=== PATIENT | male | born 1970 | race Caucasian/White ===

== ENCOUNTER 2020-11-11 20:46 | Emergency (ER) | payer BC ==
[~2020-11-11] VITALS: Ht 170.2 cm; Wt 82.6 kg
[2020-11-11 21:28] VITALS: BP 160/99
[2020-11-11 23:40] VITALS: BP 160/99
== END 2020-11-11 21:00 | disposition left against medical advice (07) ==
LOC: MED 20:46
DX: H57.10 Ocular pain, unspecified eye (principal); Z53.21 Procedure and treatment not carried out due to patient leaving prior to being seen by health care provider

== ENCOUNTER 2022-12-15 08:05 | Emergency (ER) | payer BC ==
[~2022-12-15] VITALS: Ht 170.2 cm; Wt 81.6 kg
[2022-12-15 08:08] VITALS: BP 140/105; PULSE 87; RESP 20; TEMP 98; O2SAT 98
--- NOTE | 2022-12-15 08:39 | NUR ---
MD BLACK AT BEDSIDE FOR EVALUATION
[2022-12-15 08:50] VITALS: O2SAT 98
[2022-12-15] MEDS ORDERED: KETOROLAC 30 MG/ML VIAL IVP ONE (08:50)
[2022-12-15] MEDS ORDERED: NACL 0.9% 1,000 ML IV ONE ×2 (08:50→10:05)
--- NOTE | 2022-12-15 08:50 | NUR ---
52YO MALE PT C/O EPIGATRIC PAIN X5DAYS. REPORTS SUDDEN ONSET +NAUSEA W/ RADIATION TO BACK. STATES RECENTLY DX PANCREATITIS. DENIES V/D, FEVER, CHILLS, DYSURIA OR TAKING MEDICATION. ABD NON TENDER OR DISTENDED. PT AAOX4, HOB POSITIONED PER COMFORT. PARTNER AT BEDSIDE. CALL LIGHT WITHIN REACH. HX: HTN NKA
[2022-12-15 08:52] LABS: APPEARANCE,URINE CLEAR (CLEAR); BILIRUBIN,URINE 2+ (NEGATIVE); BLOOD, URINE 2+ (NEGATIVE); LEUKOCYTE ESTERASE ,URINE TRACE (NEGATIVE); NITRITE, URINE NEGATIVE (NEGATIVE); UGLUCOSE NEGATIVE (NEGATIVE)
[2022-12-15 08:57] LABS: COLOR,URINE DARK YELLOW (YELLOW)
[2022-12-15 09:12] LABS: BASOPHILS % (AUTO) 0.7 % (0.0-2.0); EOSINOPHILS # (AUTO) 0.3 K/uL (0-0.4); EOSINOPHILS % (AUTO) 4.6 % (0.0-4.0); HEMATOCRIT 42.8 % (36-52); HEMOGLOBIN 14.8 g/dL (12.0-18.0); LYMPHOCYTES # (AUTO) 1.5 K/uL (2.0-11.5); LYMPHOCYTES % (AUTO) 23.8 % (20.5-51.1); MEAN CORPUSCULAR HEMOGLOBIN 33 pg (27-31); MEAN CORPUSCULAR HGB CONC 35 g/dL (33-37); MEAN CORPUSCULAR VOLUME 94.6 fL (80-94); MONOCYTES # (AUTO) 0.6 K/uL (0.8-1.0); MONOCYTES % (AUTO) 9.3 % (1.7-9.3); NEUTROPHILS # (AUTO) 3.8 K/uL (1.8-7.7); NEUTROPHILS % (AUTO) 61.6 % (42.2-75.2); PLATELET COUNT (AUTO) 201 K/uL (140-450); RED BLOOD CELL COUNT(AUTO) 4.52 MIL/uL (4.20-6.10); RED CELL DISTRIBUTION WIDTH 12.5 % (11.6-13.7); WHITE BLOOD COUNT (AUTO) 6.2 K/uL (4.8-10.8)
[2022-12-15 09:24] LABS: ALBUMIN 3.7 g/dL (3.4-5.0); ANION GAP 12.4 (8-16); CARBON DIOXIDE 28.5 mmol/L (21-32); CREATININE 0.8 mg/dL (0.6-1.3); POTASSIUM 3.9 mmol/L (3.5-5.1); TOTAL BILIRUBIN 1.8 mg/dL (0.0-1.0)
[2022-12-15 09:24] LABS: TRICHOMONAS,URINE None Seen /HPF (None Seen); YEAST,URINE None Seen /HPF (None Seen)
[2022-12-15] MEDS ORDERED: ONDANSETRON 4 MG/2 ML VIAL IVP ONE (10:05)
[2022-12-15] MEDS ORDERED: ONDA-188 SL (10:46)
[2022-12-15] MEDS ORDERED: IBUP-2213 PO (10:46)
--- NOTE | 2022-12-15 11:30 | NUR ---
IV removed, catheter intact and site benign. Applied folded 4x4 gauze and tape to stop bleeding.
--- NOTE | 2022-12-15 11:33 | NUR ---
Patient discharged with v/s stable. Written and verbal after care instructions FOR PANCREATITIS EATING PLAN given and explained. Patient alert, oriented and verbalized understanding of instructions. Ambulatory with steady gait. All questions addressed prior to discharge. ID band removed. Patient advised to follow up with PMD. Rx of IBUPROFEN AND ZOFRAN given. Opportunity to ask questions provided and answered. WORK NOTE PROVIDED
--- NOTE | 2022-12-15 11:34 | NUR ---
The patient's care was reviewed and supervised by Adrianna Phillips, RN, RN.
== END 2022-12-15 11:33 | disposition home or self-care (01) ==
LOC: MED 08:05
DX: K85.90 Acute pancreatitis without necrosis or infection, unspecified (principal); R74.01 Elevation of levels of liver transaminase levels; R10.13 Epigastric pain; F10.90 Alcohol use, unspecified, uncomplicated; I10 Essential (primary) hypertension; Z79.899 Other long term (current) drug therapy; Y90.9 Presence of alcohol in blood, level not specified
CPT/HCPCS: 36415; 80053; 81001; 83690; 85025; 96361; 96374; 96375; 99284; J1885; J2405; J7030